=== PATIENT | female | born 1995 | race Caucasian/White ===

== ENCOUNTER 2018-03-06 20:07 | Emergency (ER) | payer BC ==
[2018-03-06] MEDS: HYDROCODONE/APAP (5/325) TAB PO (20:45)
== END 2018-03-06 22:00 | disposition home or self-care (01) ==
LOC: FTE 20:07
DX: S93.401A Sprain of unspecified ligament of right ankle, initial encounter (principal); F17.210 Nicotine dependence, cigarettes, uncomplicated; V49.9XXA Car occupant (driver) (passenger) injured in unspecified traffic accident, initial encounter
CPT/HCPCS: 73610; 73610-RT; 99283-25